=== PATIENT | female | born 1995 | race Caucasian/White ===

== ENCOUNTER → 2016-07-23 | Outpatient (CLI) | payer OTHER, MEDICAID ==
--- NOTE | 2016-07-24 08:19 | DX ---
Bilateral hips, 2 views each. HISTORY: Hip pain. History of remote fall. Clicking. FINDINGS: Normal mineralization and alignment. No evidence for acute fracture or dislocation. No sign ificant joint narrowing or periarticular erosion. Minimal degenerative change is seen at the symphysi s pubis. IMPRESSION: Unremarkable bilateral hips.
== END ==
LOC: FIMAGING 12:11
PROVIDERS: ATTEND Radiology Diagnostic Radiology
DX: M25.551 Pain in right hip (principal); M25.552 Pain in left hip

== ENCOUNTER 2018-01-05 20:15 | Inpatient (IN) | payer OTHER, MEDICAID ==
--- NOTE | 2018-01-05 20:23 | EDPHY ---
HPI/HX/ROS/PE/MDM Narrative: CHIEF COMPLAINT: M1, suicidal ideation HPI: The patient is a 22 y/o female with a history of depression arriving via [employer] on an M1 hold for suicidal ideation. PD contacted her as she was preparing to jump off a [place] on [facility]. Per officer, her friend was able to talk her down to keep her from jumping prior to their arrival. Throughout the officer's contact with her, she repeatedly stated that she regretted not jumping and planned to harm herself as soon as she had the opportunity. She affirms this plan to me. She has no other complaints. She denies any recent self -harm, ingestions, or intoxicant use. REVIEW OF SYSTEMS: Aside from elements discussed in the HPI, a comprehensive 10-point review of systems was reviewed and is negative. PMH: Depression SOCIAL HISTORY: Lives in [place]. Single. Student. PHYSICAL EXAM: General:Patient is alert, in no acute distress. ENT:Eyes are normal to inspection. ENT inspection normal. Neck: Normal inspection. Full range of motion. Respiratory:No respiratory distress. Breath sounds normal bilaterally. Cardiovascular: Regular rate and rhythm. Strong peripheral pulses. Normal cap refill. Abdomen:The abdomen is nontender to palpation. There are no peritoneal signs. Back: Normal to inspection. No tenderness to palpation. Skin: Normal color. No rash. Warm and dry. Extremities: Normal appearance. Full range of motion. Neuro: Oriented x3. Normal motor function. Normal sensory function. (Erik Argueta) ED Course: This is a 22 y/o female with a history of depression who presents on an M1 hold with plan to jump off a k[place] tonight to kill herself. No trauma noted. Normal exam. Plan for standard psychiatric clearance labs and then mental health evaluation. (Erik Argueta) 2323: Patient has been accepted by Dr. Arambula, 3N admission. EMTALA filled out. Appropriate transfer will be set up (Mac Mendosa) - Data Points Laboratory Results: Laboratory Results 01/05/18 20:20 01/05/18 20:20 01/05/18 01/05/18 01/05/18 21:35 20:20 20:20 WBC RBC Hgb Hct MCV MCH MCHC RDW Plt Count MPV Neut % (Auto) Lymph % (Auto) Marin % (Auto) Eos % (Auto) Baso % (Auto) Nucleat RBC Rel Count Absolute Neuts (auto) Absolute Lymphs (auto) Absolute Monos (auto) Absolute Eos (auto) Absolute Basos (auto) Absolute Nucleated RBC Immature Gran % Immature Gran # Sodium 140 mEq/L mEq/L (135-145) Potassium 3.6 mEq/L mEq/L (3.3-5.0) Chloride 110 mEq/L mEq/L (97-110) Carbon Dioxide 19 mEq/l L mEq/l (22-31) Anion Gap 11 mEq/L mEq/L (8-16) BUN 10 mg/dL mg/dL (7-23) Creatinine 0.8 mg/dL mg/dL (0.6-1.0) Estimated GFR > 60 Glucose 89 mg/dL mg/dL (70-100) Calcium 9.6 mg/dL mg/dL (8.5-10.4) Beta HCG, Qual NEGATIVE Urine Opiates Screen Cancelled Urine Barbiturates NEGATIVE (NEGATIVE) Ur Phencyclidine Scrn Cancelled Ur Amphetamine Screen NEGATIVE (NEGATIVE) Ur Amphetamines Screen Cancelled U Benzodiazepines Scrn NEGATIVE (NEGATIVE) Urine Cocaine Screen Cancelled U Marijuana (THC) Screen Cancelled Ethyl Alcohol < 10 mg/dL mg/dL (0-10) 01/05/18 20:20 WBC 13.45 10^3/uL H 10^3/uL (3.80-9.50) RBC 4.79 10^6/uL 10^6/uL (4.18-5.33) Hgb 14.4 g/dL g/dL (12.6-16.3) Hct 42.0 % % (38.0-47.0) MCV 87.7 fL fL (81.5-99.8) MCH 30.1 pg pg (27.9-34.1) MCHC 34.3 g/dL g/dL (32.4-36.7) RDW 13.7 % % (11.5-15.2) Plt Count 234 10^3/uL 10^3/uL (150-400) MPV 11.1 fL fL (8.7-11.7) Neut % (Auto) 73.9 % % (39.3-74.2) Lymph % (Auto) 18.7 % % (15.0-45.0) Marin % (Auto) 6.1 % % (4.5-13.0) Eos % (Auto) 0.7 % % (0.6-7.6) Baso % (Auto) 0.4 % % (0.3-1.7) Nucleat RBC Rel Count 0.0 % % (0.0-0.2) Absolute Neuts (auto) 9.93 10^3/uL H 10^3/uL (1.70-6.50) Absolute Lymphs (auto) 2.51 10^3/uL 10^3/uL (1.00-3.00) Absolute Monos (auto) 0.82 10^3/uL H 10^3/uL (0.30-0.80) Absolute Eos (auto) 0.10 10^3/uL 10^3/uL (0.03-0.40) Absolute Basos (auto) 0.06 10^3/uL 10^3/uL (0.02-0.10) Absolute Nucleated RBC 0.00 10^3/uL 10^3/uL (0-0.01) Immature Gran % 0.2 % % (0.0-1.1) Immature Gran # 0.03 10^3/uL 10^3/uL (0.00-0.10) Sodium Potassium Chloride Carbon Dioxide Anion Gap BUN Creatinine Estimated GFR Glucose Calcium Beta HCG, Qual Urine Opiates Screen Urine Barbiturates Ur Phencyclidine Scrn Ur Amphetamine Screen Ur Amphetamines Screen U Benzodiazepines Scrn Urine Cocaine Screen U Marijuana (THC) Screen Ethyl Alcohol Medications Given: Discontinued Medications Ondansetron HCl (Zofran Odt) 4 mg PO EDNOW ONE Stop: 01/05/18 20:25 Last Admin: 01/05/18 20:28 Dose: 4 mg General Time Seen by Provider: 01/05/18 20:18 Initial Vital Signs: Initial Vital Signs Temperature (C) 36.4 C 01/05/18 20:15 Heart Rate 74 01/05/18 20:15 Respiratory Rate 18 01/05/18 20:15 Blood Pressure 134/87 H 01/05/18 20:15 O2 Sat (%) 96 01/05/18 20:15 O2 Delivery Mode Room Air Allergies/Adverse Reactions: No Known Allergies Allergy (Verified 07/12/14 22:06) Home Medications: Medication Instructions Recorded ALPRAZolam [Xanax 0.5 MG (*)] 0.5 mg PO TID 01/05/18 Nuva Ring 01/05/18 Departure - Departure Clinical Impression: Suicidal ideation Condition: Fair Referrals: Patient,NotPresent [Unknown] - As per Instructions Report Scribed for: Erik Argueta Report Scribed by: Lilia Malone Date of Report: 01/05/18 Time of Report: 20:42 Physician Review and Approval Statement: Portions of this note were transcribed by an ED scribe. I personally performed the history, physical exam, and medical decision making; and confirm the accuracy of the information in the transcribed note.
[2018-01-05] MEDS ORDERED: ONDANSETRON DISINTEGRATING 4 MG TAB PO ONE (20:24)
[2018-01-05 20:39] LABS: PLATELET COUNT 234 10^3/uL (150-400)
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
--- NOTE | 2018-01-05 23:55 | ASMTTCLDSP ---
TLC Discharge Disposition Disposition: Answers: Admit Discharge Concerns/Recommendations: Notes: In consultation with [facility] ED physician, Mac Sanderson MD and on-call psychiatrist, Anurag Guzman MD, both concurred that pt appears to meet 27-65 criteria requiring psychiatric hospitalization as pt appears to be at risk of harm to self due to a mental illness condition. Pt was given the 3N prohibited belongings list while in the ED. Was patient given the Answers: Yes Inpatient Behavioral Health Prohibited Belongings List while in the ED? For inpatient Anurag Guzman MD admission, the following psychiatrist agreed to accept patient for admission to Behavioral Health ([facility]): Type of Hold: Answers: M1/72-hour Hold Hold initiated by: Answers: Police Date Signed: 01/05/2018 11:54 PM Electronically Signed By:Radha Morales
[2018-01-06] MEDS ORDERED: ACETAMINOPHEN 325 MG TAB PO PRN (02:01)
[2018-01-06] MEDS ORDERED: LORazepam 0.5 MG TAB PO PRN (02:01)
[2018-01-06] MEDS ORDERED: MAGNESIUM HYDROXIDE 30 ML UDCUP PO PRN (02:01)
[2018-01-06] MEDS ORDERED: MAG HYDROX/AL HYDROX/SIMETH 30 ML UDCUP PO PRN (02:01)
[2018-01-06] MEDS ORDERED: QUEtiapine FUMARATE 25 MG TAB PO PRN (02:03)
[2018-01-06] MEDS ORDERED: DULoxetine 20 MG CAP PO SCH (09:00)
--- NOTE | 2018-01-06 11:09 | ASMTBHMTP ---
Master Treatment Plan Master Treatment Plan Answers: Depressed Mood with for: Suicidal Ideation Date: 01/06/2018 Diagnosis on Admission: Major Depressive Disorder, Recurrent, Severe 296.33 (F33.2) Expected length of stay: 3-5 days Reason for admission: Notes: Pt is a 22 yoa female who was brought to [facility] ED on an M-1 hold by [facility] which noted, "Thomas wanted to jump off a [place] the [address] [place] Per police, "she was set on killing herself and regretted not jumping prior to be taken in to custody." Per Grandfather, client has been isolating more than normal and not interacting very much at all (recently). Client claims she already has an out-side provider (Jack Kim-Therapist) & PCP, etc. Client has had one hospitalization two years ago in [place], [place]. Patient's stated presenting problems: Notes: "I have depression...and I don't want to deal with it for the rest of my life." Patient's goals for treatment: Notes: "[To] make sure I'm on the right medications." Patient's strengths: Notes: none Identify supports outside of hospital: Notes: Family and Friends Discharge criteria: Notes: Suicidal Ideation and patient will have a plan to safely manage recurrent suicidal ideation. Initial disposition plan/considerations: Notes: "I would like to stay here in [place], [place] and live with my Grandparents." Master Treatment Plan Required Signatures Psychiatrist signature: Answers: NASRA Funez: RN on-shift signature: Answers: RN: Patient signature: Answers: Patient: Date Signed: 01/06/2018 11:08 AM Electronically Signed By:Cecil Casanova
--- NOTE | 2018-01-06 13:42 | BCON ---
[f rep st] BEHAVIORAL HEALTH CONSULTATION INTERNAL MEDICINE CONSULTATION DATE OF CONSULTATION: 01/06/2018 REFERRING PHYSICIAN: Anurag Guzman MD REASON FOR REFERRAL: Medical clearance for inpatient behavioral health stay. HISTORY OF PRESENT ILLNESS: This patient came to the emergency department on an M1 hold, brought by the by the [facility] Department for suicidal ideation. She was preparing to jump off a [place] on [facility]. A friend was able to talk her down, and then she was picked up [facility] and brought to the emergency department. She is currently without any acute complaints. PAST MEDICAL HISTORY: She reports history of cysts in her groin. She is not sure what kind of cyst and she has had 1 removed by her primary care provider. Depression. She, otherwise, denies any past medical or surgical history. MEDICATIONS: She was taking duloxetine 40 mg daily, and she has a NuvaRing intravaginal contraceptive device. FAMILY HISTORY: Noncontributory. REVIEW OF SYSTEMS: She is not in pain. She denies cough or dyspnea. She denies recent weight change. She denies nausea, vomiting, constipation, or diarrhea. Otherwise, a 10-point review of systems is negative. PHYSICAL EXAMINATION: VITAL SIGNS: Blood pressure is 110/59, heart rate is 83 , respiratory rate is 16, oxygen saturation is 98% on room air, temperature is 36.8 degrees centigrade. Weight is 63.5 kg for a body mass index of 24. GENERAL: This is a well-nourished, well-developed woman appears her chronologic age cooperative and in no acute distress: HEENT: Extraocular movements are intact. Pupils are equal, round, reactive to light. Mucous membranes are moist. Dentition is in good condition. She is uncrowded airway, Mallampati class 1. NECK: Supple. HEART: There is regular rate and rhythm with no murmurs, rubs, or gallops. LUNGS: Clear to auscultation bilaterally. ABDOMEN: Benign. EXTREMITIES: There is no cyanosis, clubbing, or edema. NEUROLOGIC: She is alert and oriented x3. Cranial nerves 2-12 are grossly intact. There is no focal weakness and sensation is intact to light touch. LABORATORY DATA: From the emergency department: CBC showed an elevated white blood cell count at 13.45. It was predominantly neutrophils and monocytes and there was no left shift. Serum chemistry showed a low carbon dioxide at 19 otherwise renal function electrolytes were normal. Beta hCG was negative for . Toxicology screen in the serum was negative for ethyl alcohol and in the urine was negative for substances of abuse with testing for barbiturates , amphetamines and benzodiazepines. ASSESSMENT/RECOMMENDATIONS: 1. Mental health issues pending further evaluation and management per Psychiatry and the mental health team. 2. Tobacco dependence syndrome. She reports that she is in the process of quitting and she was encouraged to continue the process. 3. Presence of NuvaRing intravaginal contraceptive device. This should be removed for a week after 3 weeks of use, and then replaced for the next cycle. Advise nursing to determine where she is in the NuvaRing cycle. I see no medical contraindications to this patient's continued stay on the inpatient behavioral health unit or to any psychiatric medications or procedures. Thank you very much for including me in the care of this patient and please do not hesitate to contact me or the hospitalist service should there be need for further medical evaluation. /[id number]/MODL MTDD
[2018-01-06] MEDS ORDERED: traZODone 50 MG TAB PO PRN (13:48)
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
[2018-01-06] MEDS: DULoxetine 20 MG CAP PO SCH (21:26)
--- NOTE | 2018-01-07 12:17 | SOAPPROG ---
SOAP Progress Note Assessment/Plan: Assessment: Major depressive disorder, severe, with anxious distress. PTSD per history. Mild anxiety (see subjective/objective note). Patient could benefit from continued hospitalization for observation for safety and medication evaluation. Plan: Review psychotropic medication treatment informed consent and recommendations. After reviewing options, risk and benefits, patient agrees to continue medications with the following changes. No medication changes at this time as more time is needed to determine ongoing tolerability and efficacy. Plan is to continue to observe patient for response and side effects from medications, and ongoing monitoring and evaluation. Next steps are for patient to meet with wound care nurse to plan a safe discharge plan and establish outpatient services for ongoing treatment. Consider discharge on if patient is in stable condition, safe, and has a safe discharge plan. PSYCHOTROPIC MEDICATION TREATMENT INFORMED CONSENT and RECOMMENDATIONS: Review nature of condition, diagnosis, and prognosis. Review nature and purpose of psychotropic medication treatment. Review type of psychotropic medications being ordered. Review risk and benefits of psychotropic medication treatment. Review probable length of time patient will need to take medications. Review risk and benefits of not undergoing psychotropic medication treatment. Review alternative treatments to psychotropic medications. Review psychotropic medications contraindications, drug-drug interactions, side effects, and importance of reporting any side effects to a psychiatric provider or nurse during inpatient hospitalization, and upon discharge to patients psychiatric outpatient provider, primary care provider, or other health child care assistant. Review importance of asking a nurse, psychiatric provider, or primary care provider any questions or problems concerning the psychotropic medications. Verify patient understands the information that has been provided, and understands, accepts, and agrees to psychotropic medications. Review patients safety plan and importance of patient to report to staff while hospitalized if patient is ever a danger to self/others, or unable to care for self, and upon discharge, the importance for patient to contact [facility] or [facility], or go to the nearest emergency room, if patient is ever a danger to self/others, or unable to care for self. Recommend that upon discharge patient establish medication management treatment with a psychiatric provider, establishes routine therapy appointments, and follow-up with primary care provider. Verify patient understands and agrees to these recommendations. 01/07/18 12:16 Subjective: Following up with patient for evaluation of depression, anxiety, and safety. Patient reports, "I am more mindful now and realize I have too much to live for. " Patient reports she wants to watch her sister grow-up and be a god-mother to her god-child, and have her own children someday. Patient expresses the following psychiatric symptoms: "a little anxious." Patient reports, "started new therapy (EMDR) with therapist, one session so far, and look forward to continuing it. Doing this for PTSD and depression." Objective: Vital Signs Temp Pulse Resp BP Pulse Ox 36.6 C 70 15 112/74 98 01/07/18 06:00 01/07/18 06:00 01/07/18 06:00 01/07/18 06:00 01/07/18 06:00 NURSING REPORT: Consulted with nursing for update on patients progress in treatment. Nurses report patient is engaged in treatment, is attending groups, slept 8 hours, expresses the following psychiatric symptoms: mild anxiety, exhibits the following psychiatric symptoms: anxious, is eating all meals, is taking medications as prescribed with no report of side effects, with no S/S side effects, and denies SI. RECREATIONAL DIRECTOR UPDATE: currently working on setting up outpatient services FAMILY MEETING: plan to meet with family today when they arrive during visiting hours UPDATE: Patient is currently improving, tolerating medications with no reports of side effects, and with good response for depression symptoms. Patient shows treatment response as of today. Patient continues to exhibit signs of anxiety. The patient presents casually dressed and with good hygiene, and looks stated age. Patient is sitting, posture is upright, and position is relaxed. Patient appears awake, alert, and responds appropriately and reasonably during interview. Patient is engaged, relates well to interviewer, and emotional facial expression is appropriate to situation and changes appropriately with topic. Patient is cooperative, makes comfortable eye contact, and movements are voluntary, deliberate, coordinated, and smooth and even with no inappropriate movements. Patient makes laryngeal sounds effortlessly and shares conversation appropriately; pace of conversation is appropriate, and stream of talking is fluent; articulation is clear and understandable; word choice is effortless and appropriate for education level; completes sentences, occasionally pausing to think; rate and volume are appropriate for interview and setting. Patient reports mood as anxious. Patients affect is stable with full variable range, congruent with mood, and appropriate to speech and circumstances. Patient has linear and logical thinking, with no loose associations, tangential thought, thought blocking, concrete thinking, or any other signs of formal thought disorder. Patient denies suicidal and homicidal ideation, and denies hallucinations and delusions. Patient appears to be a reliable historian with sound judgement and good insight into current condition. Patient has no apparent dysfunction in recent or remote memory noted , and no evidence of gross cognitive dysfunction noted at any point during the interview. Patient reports taking medications as prescribed. Patient does not report undesirable side effects from the medications. Patient slept 8 hours. Patient reports appetite as good, and reports eating all meals. - Time Spent With Patient Time Spent With Patient: 30 minutes, met with patient individually. - Pending Discharge Pending Discharge Within 24 Hours: Yes Pending Discharge Within 48 Hours: No Pending Discharge Date: 01/08/18 Pending Discharge Time: 11:00 ICD10 Worksheet Patient Problems: Problems Problem Status Onset Cannabis use disorder, moderate, in controlled environment Acute Major depressive disorder, recurrent episode, severe with anxious distress Acute Suicidal ideation Acute
--- NOTE | 2018-01-07 12:33 | ASMTBHDC ---
Notes Note: Notes: CC spoke briefly to client during check-in. Client appears neat, clean, affect is appropriate to situation while displaying a pleasant demeanor. Client was able to sign SHAISTA for out-side providers. CC tried to contact all providers but due to the holiday was not able to reach anyone. CC will try again in the AM as client is expected to discharge sometime tomorrow. Follow up with: [facility] [address], [address] Next Appt: NICOLE Patricio MD [address] [place] [id number] Next Appt: NICOLE Date Signed: 01/07/2018 12:32 PM Electronically Signed By:Cecil Casanova
[2018-01-07] MEDS: DULoxetine 20 MG CAP PO SCH (20:49)
[2018-01-08 06:21] VITALS: BP 90/55
--- NOTE | 2018-01-08 09:57 | BDS ---
[f rep st] BEHAVIORAL HEALTH DISCHARGE SUMMARY REASON FOR ADMISSION: Pertinent data from ED note dated 01/05/2018. The patient has history of depression. Arriving via [employer] on an M1 hold for suicidal ideation. PD contacted her as she was preparing to jump off a kyleigh at [facility] per officer. Her friend was able to talk her down from jumping prior to her arrival. The patient was admitted involuntarily on an M1 hold due to being a danger to herself. The patient was admitted for safety, crisis stabilization, and medication evaluation. ADMISSION DIAGNOSES: 1. Suicidal ideation. 2. Major depressive disorder, recurrent episode, severe with anxious distress. 3. Cannabis use disorder, moderate, in controlled environment. 4. Posttraumatic stress disorder. ADMISSION PHYSICAL EXAMINATION: The patient was seen by Dr. Goldsmith on 2017, for an internal medicine consultation. Reason for referral was medical clearance for inpatient Behavioral Health stay. Per Dr. Goldsmith, he saw no medical contraindications to the patient's continued stay on the inpatient behavioral health unit or to any psychiatric medications or procedures. For further details, please refer to Dr. Goldsmith's note dated 01/06/2018. ADMISSION LABORATORY: Labs from the emergency department, CBC showed an elevated white blood cell count at 13.45; it was predominantly neutrophils and monocytes. There was no left shift. Serum chemistry showed a low carbon dioxide at 19. Otherwise, renal function and electrolytes were normal. Beta HCG was negative for . Toxicology screen in the serum was negative for ethyl alcohol and then the urine was negative for substances of abuse. HOSPITAL COURSE: The most prominent symptoms and behaviors while the patient was here were symptoms of depression including flat affect and patient reporting feeling sad. Depression symptoms were targeted during hospitalization. Treatment modalities utilized were milieu and group therapy. The patient, upon admission, was on Cymbalta 40 mg p.o. at bedtime. The patient agreed to increase this medication and Cymbalta 60 mg p.o. at bedtime was started to target depression symptoms and was tolerated with no report of side effects and with good response. The patient reported difficulty falling asleep and sleep issues in general due to depression. The patient agreed to trazodone 50 mg p.o. at bedtime p.r.n. Medication was started to target insomnia symptoms related to depression and was tolerated with no report of side effects and with good response. The patient has improved considerably with no signs of psychiatric symptoms or no psychiatric symptoms expressed at discharge. The patient reports she has improved since admission, states to be in stable condition, feels safe at discharge, and contracts for safety. Patient 's response to treatment was good. There were no adverse or unexpected results of treatment. The patient was safe throughout her stay, active in treatment, engaged in groups, and was appropriate with staff and other patients. The treatment team consensus is that the patient is stable condition and is safe to discharge today. CONDITION ON DISCHARGE: Patient is in stable condition and is no longer a danger to self or others, and is not gravely disabled due to mental illness. Patient is no longer in need of inpatient level of care, and can be safely and effectively treated within the community. The patients level of risk at time of discharge is low based on the risk assessment below following this discharge summary. MSE: The patient is casually dressed and with good hygiene, and looks stated age. Patient is sitting, posture is upright, and position is relaxed. Patient appears awake, alert, and responds appropriately and reasonably during interview. Patient is engaged, relates well to interviewer, and emotional facial expression is appropriate to situation and changes appropriately with topic. Patient is cooperative, makes comfortable eye contact, and movements are voluntary, deliberate, coordinated, and smooth and even with no inappropriate movements. Patient makes laryngeal sounds effortlessly and shares conversation appropriately; pace of conversation is appropriate, and stream of talking is fluent; articulation is clear and understandable; word choice is effortless and appropriate for education level; completes sentences, occasionally pausing to think; rate and volume are appropriate for interview and setting. Patient reports mood as euthymic. Patients affect is stable with full variable range, congruent with mood, and appropriate to speech and circumstances. Patient has linear and logical thinking, with no loose associations, tangential thought, thought blocking, concrete thinking, or any other signs of formal thought disorder. Patient denies suicidal and homicidal ideation, and denies hallucinations and delusions. Patient appears to be a reliable historian with sound judgement and good insight into current condition. Patient has no apparent dysfunction in recent or remote memory noted , and no evidence of gross cognitive dysfunction noted at any point during the interview. DISCHARGE DIAGNOSES: 1. Major depressive disorder, recurrent episode, severe with anxious distress. 2. Cannabis use disorder, moderate. 3. Posttraumatic stress disorder. DISCHARGE MEDICATIONS: Cymbalta 60 mg p.o. at bedtime. The patient was provided a 30-day prescription at time of discharge. trazodone 50 mg p.o. at bedtime p.r.n. The patient was provided a 30 day prescription at time of discharge. Prescriptions were reviewed with the patient prior to discharge for accuracy. DISPOSITION: The patient left hospital independently and voluntarily with her grandmother and plans to attend her therapy appointment today at 11:30 a.m. FOLLOWUP: residency coordinator reports the appropriate outpatient follow-up services have been established and outpatient appointments have been scheduled. The patient received written instructions with times and dates of outpatient follow-up appointments. The following follow-up recommendations were provided to the patient at discharge: Continue psychotropic medications as prescribed and attend appointments as scheduled. Report any side effects to a psychiatric outpatient provider, a primary care provider, or other health customer care professional. Address any questions or problems concerning the psychotropic medications with a psychiatric outpatient provider, a primary care provider, or other health customer care professional. Contact [facility] or [facility], or go to the nearest emergency room, if you are ever a danger to yourself/others, or unable to care for yourself. As soon as possible, establish a routine medication management treatment with a psychiatric provider, establish routine therapy appointments, and follow-up with a primary care provider. LEGAL COURSE: The patient was admitted on M1 for involuntary psychiatric hospitalization. The patient discharged today voluntarily and independently with her. ATTITUDE AT TIME OF DISCHARGE: The patient's attitude was positive at time of discharge and the patient reports looking forward to discharging today. The patient reports she feels safe to discharge, is no longer a danger to herself or others, is in stable condition, and contracts for safety. The patient states she will continue medications as prescribed and establish medication management treatment with her outpatient provider after discharge. The patient reports she understands the information that has been provided to her and she understands, accepts, and agrees to psychotropic medications. The patient reports internal protective factors as the coping skills she has learned while hospitalized here and she plans to continue to practice these coping skills after discharge. The patient reports external protective factors as her younger sister, her godchild, grandparents, and wanting children of her own someday. Patient describes looking forward to being able to spend time with her younger sister and going to her therapy appointment at 11:30 a.m. today after discharge. 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 The patient reports she has completed her safety plan and has reviewed her safety plan with her nurse. This TRANSCRIPTION met with the patient's grandparents yesterday, during visiting hours and with the patient present, and reviewed the patient's safety plan with them and the patient, and also discussed ongoing treatment and discharge plans. The patient reports her family and friends look forward to her discharging today. The patient reports her mother visited her last night during visiting hours and they put a puzzle together during that time. The patient reports that she has not done something like this with her mother for a long time and she looks forward to continuing to have a good relationship with her mother after discharge. The patient's grandparents report the patient has a safe discharge plan, is safe to discharge, and agrees with patient discharging today. The patient will return and stay with grandparents for the majority of the summer and then patient will return to college in [place], [place]. LABORATORY AND STUDIES: No pending labs and studies at time of discharge. ADVANCE DIRECTIVES: No advance directives on file and patient were full code during hospitalization. The following psychotropic medication treatment informed consent and recommendations were provided to the patient at time of discharge. Patient reports she understands, accepts, and agrees to the information that has been provided. PSYCHOTROPIC MEDICATION TREATMENT INFORMED CONSENT and RECOMMENDATIONS: Review nature of condition, diagnosis, and prognosis. Review nature and purpose of psychotropic medication treatment. Review type of psychotropic medications being prescribed. Review risk and benefits of psychotropic medication treatment. Review probable length of time will need to take medications. Review risk and benefits of not undergoing psychotropic medication treatment. Review alternative treatments to psychotropic medications. Review psychotropic medications contraindications, side effects, and importance of reporting any side effects to a psychiatric provider, primary care provider, or other health customer care professional. Review importance of her asking a psychiatric provider or primary care provider any questions or problems concerning the psychotropic medications. Review importance of reporting to a psychiatric provider, primary care provider, or other health customer care professional if she plans to or becomes . Review safety plan and the importance to contact [facility] or [facility] , or go to the nearest emergency room, if ever a danger to yourself/others, or unable to care for yourself. Recommend upon discharge to establish routine medication management treatment with a psychiatric provider, establish routine therapy appointments, and follow-up with a primary care provider. Verify patient understands, accepts, and agrees to the information that has been provided. SUICIDE ASSESSMENT FIVE-STEP EVALUATION AND TRIAGE (1) RISK FACTORS: (a) Suicidal behavior: reports history of suicidal ideation, but has reached out to friends for coping skills, and has no history of suicide attempt (b) Current/past psychiatric disorders: Major Depressive Disorder, PTSD, Cannabis Use Disorder (c) [place] symptoms: mild anxiety (d) Family history: none (e) Precipitants/Stressors/Interpersonal: none (f) Change in treatment: discharge from psychiatric hospital (g) Access to firearms: none (2) PROTECTIVE FACTORS: (a) Internal: coping skills (b) External: family and friends (3) SUICIDAL INQUIRY: (a) Ideation: none (b) Plan: none (c) Behaviors: none (d) Intent: none (4) RISK LEVEL: Low: modifiable risk factors, strong protective factors; no SI or self-injurious ideation. Intervention: treatment plan to reduce symptoms: medications and therapy, provided emergency/crisis numbers, follow-up plan. /[id number]/MODL MTDD
== END 2018-01-08 10:18 | disposition home or self-care (01) | DRG 885 ==
LOC: BBEH 01-06 01:43
PROVIDERS: ADMIT Psychiatry & Neurology Psychiatry; ATTEND Psychiatry & Neurology Psychiatry
DX: F33.3 Major depressive disorder, recurrent, severe with psychotic symptoms (principal); F12.90 Cannabis use, unspecified, uncomplicated; F43.10 Post-traumatic stress disorder, unspecified; F17.200 Nicotine dependence, unspecified, uncomplicated
CPT/HCPCS: 80305; G0480

== ENCOUNTER 2018-09-28 18:23 | Emergency (ER) | payer OTHER, MEDICAID ==
[2018-09-28] MEDS ORDERED: NS 1,000 ML IV ONE (18:40)
--- NOTE | 2018-09-28 18:48 | EDPHY ---
H & P Stated Complaint: + preg test has nuva ring l sided pelvic pain lmp 09/02 Source: Patient Exam Limitations: No limitations - Personal History LMP (Females 10-55): Current Tetanus Diphtheria and Acellular Pertussis (TDAP): Yes - Medical/Surgical History Hx Asthma: Yes Hx Chronic Respiratory Disease: No Hx Diabetes: No Hx Cardiac Disease: No Hx Renal Disease: No Hx Cirrhosis: No Hx Alcoholism: No Hx HIV/AIDS: No Hx Splenectomy or Spleen Trauma: No Other PMH: depression - Social History Smoking Status: Former smoker Time Seen by Provider: 09/28/18 18:42 HPI/ROS: HPI: This is a 22-year-old female who presents with Chief Complaint: Left lower quadrant pain Location: Left lower quadrant Quality: Pain Duration: Since yesterday afternoon Signs and Symptoms: no fever, + nausea, no vomiting, no hematemesis, no blood in stool, no abdominal bloating, no diarrhea, no back pain, no urinary symptoms , no vaginal bleeding/discharge, no indigestion, no chest pain, no shortness of breath Timing: Acute, worsening Severity: Moderate Context: Patient is a had a NuvaRing inserted on August 12. Last menstrual period was 09/02/2018. Yesterday afternoon developed left lower quadrant pain that worsened with laughing, bending, coughing. She felt a bulging sensation in the left lower quadrant. The pain is continued to worsen and is now moderate, constant in nature. She took a test today and it was positive. She was sent from urgent care to the emergency room to evaluate for ectopic . Denies any urinary symptoms. Denies vaginal discharge, vaginal bleeding. Modifying Factors: None Comment: ROS: A comprehensive 10 system review of systems is otherwise negative aside from elements mentioned in the history of present illness. MEDICAL/SURGICAL/SOCIAL HISTORY: Medical history: Depression. Surgical history: Denies Social history: Former smoker. Family history noncontributory. CONSTITUTIONAL: Well-developed, well-nourished, nontoxic-appearing young adult white female, awake and alert, no obvious distress HEENT: Atraumatic and normocephalic, PERRL, EOMI. Nares patent; no rhinorrhea; no nasal mucosal edema. Tympanic membranes clear. Oropharynx clear, no exudate and moist pink mucosa. Airway patent. No lymphadenopathy. No meningismus. Cardiovascular: Normal S1/S2, regular rate, regular rhythm, without murmur rub or gallop. PULMONARY/CHEST: Symmetrical and nontender. Clear to auscultation bilaterally. Good air movement. No accessory muscle usage. ABDOMEN: Soft, nondistended, moderate left lower quadrant tenderness, no rebound, + guarding, no peritoneal signs, no masses or organomegaly. No CVAT. EXTREMITIES: 2/2 pulses, strength 5/5, no deformities, no clubbing, no cyanosis or edema. NEUROLOGICAL: no focal neuro deficits. GCS 15. SKIN: Warm and dry, no erythema. no rash. Good capillary refill. (Mercy Mcginnis) Constitutional: Initial Vital Signs Temperature (C) 36.7 C 09/28/18 18:28 Heart Rate 74 09/28/18 18:28 Respiratory Rate 18 09/28/18 18:28 Blood Pressure 115/79 09/28/18 18:28 O2 Sat (%) 99 09/28/18 18:28 O2 Delivery Mode Room Air Allergies/Adverse Reactions: latex Allergy (Verified 09/28/18 18:28) Home Medications: Medication Instructions Recorded Nuva Ring 1 eileen [id number] 01/05/18 DULoxetine [Cymbalta 60 MG (*)] 60 mg PO HS #30 cap 01/08/18 traZODone [traZODONE 50MG (*)] 50 mg PO HS PRN 30 Days #30 tab 01/08/18 Medical Decision Making - Diagnostics Imaging Results: Imaging Impressions Pelvic/Renal Ultrasound 09/28/18 18:40 Impression: 1. Negative pelvic ultrasound. 2. There is a positive test with no intrauterine gestation identified , presumably due to the early age based on a low beta hCG. Continued follow-up is recommended. An ectopic gestation is not excluded. Results called and discussed with Mercy WHITE on 09/28/2018 at 19:50. ED Course/Re-evaluation: Vital signs reviewed and stable upon arrival. IV access, laboratory studies, urinalysis, pelvic ultrasound ordered 1923: Urinalysis shows 1+ blood, 2+ LE, 5-10 WBCs; no malinda signs of infection Labs reviewed. WBC 11 K. No signs of anemia/platelet dysfunction/TAMIKO/elevated LFTs/electrolyte imbalance/pancreatitis. 1929: Positive serum HCG 1937: Pelvic ultrasound is essentially unremarkable and no signs of ovarian torsion, no ectopic . 1943: Serum HCG 398.03 Blood type is O-positive 1948: Called by radiologist, Dr. Daniel Solorzano, who advised pelvic ultrasound shows no signs of ectopic , ovarian torsion, ovarian cyst, free fluid. No intrauterine gestation identified. ED decision to consult OBGYN. Spoke with Dr. Falcon. Remove NuvaRing. Repeat Quaint 48 hours at 4 pm. Call to make an appt for . Ectopic precautions. Patient personally removed the NuvaRing while in the emergency room. This patient was seen under the supervision of my secondary supervising physician. I evaluated care for this patient with attending. (Mercy Mcginnis) I did not see this patient while she was in the emergency department. However her care was discussed with the PA while the patient was in the department. I agree with treatment plan and management (Randolph Fernandez) Differential Diagnosis: Abdominal pain in a female including but not limited to ovarian cyst, pelvic inflammatory disease, ovarian torsion, urinary tract infection, and appendicitis. (Mercy Mcginnis) - Data Points Laboratory Results: Laboratory Results 09/28/18 18:56 09/28/18 18:56 09/28/18 09/28/18 09/28/18 19:05 18:56 18:56 WBC RBC Hgb Hct MCV MCH MCHC RDW Plt Count MPV Neut % (Auto) Lymph % (Auto) [place] % (Auto) Eos % (Auto) Baso % (Auto) Nucleat RBC Rel Count Absolute Neuts (auto) Absolute Lymphs (auto) Absolute Monos (auto) Absolute Eos (auto) Absolute Basos (auto) Absolute Nucleated RBC Immature Gran % Immature Gran # Sodium Potassium Chloride Carbon Dioxide Anion Gap BUN Creatinine Estimated GFR Glucose Calcium Total Bilirubin Conjugated Bilirubin Unconjugated Bilirubin AST ALT Alkaline Phosphatase Total Protein Albumin Lipase Beta HCG, Qual POSITIVE Beta HCG, Quant Urine Color YELLOW Urine Appearance CLEAR Urine pH 5.0 (5.0-7.5) Ur Specific [place] 1.021 (1.002-1.030) Urine Protein NEGATIVE (NEGATIVE) Urine Ketones NEGATIVE (NEGATIVE) Urine Blood 1+ H (NEGATIVE) Urine Nitrate NEGATIVE (NEGATIVE) Urine Bilirubin NEGATIVE (NEGATIVE) Urine Urobilinogen NEGATIVE EU EU (0.2-1.0) Ur Leukocyte Esterase 2+ H (NEGATIVE) Urine RBC 1-3 /hpf /hpf (0-3) Urine WBC 5-10 /hpf H /hpf (0-3) Ur Epithelial Cells TRACE /lpf /lpf (NONE-1+) Urine Mucus 1+ /lpf /lpf (NONE-1+) Urine Glucose NEGATIVE (NEGATIVE) Patient ABO/Rh O POSITIVE 09/28/18 09/28/18 18:56 18:56 WBC 10.67 10^3/uL H 10^3/uL (3.80-9.50) RBC 4.51 10^6/uL 10^6/uL (4.18-5.33) Hgb 13.3 g/dL g/dL (12.6-16.3) Hct 39.7 % % (38.0-47.0) MCV 88.0 fL fL (81.5-99.8) MCH 29.5 pg pg (27.9-34.1) MCHC 33.5 g/dL g/dL (32.4-36.7) RDW 13.5 % % (11.5-15.2) Plt Count 293 10^3/uL 10^3/uL (150-400) MPV 10.1 fL fL (8.7-11.7) Neut % (Auto) 52.1 % % (39.3-74.2) Lymph % (Auto) 37.2 % % (15.0-45.0) [place] % (Auto) 6.2 % % (4.5-13.0) Eos % (Auto) 3.8 % % (0.6-7.6) Baso % (Auto) 0.5 % % (0.3-1.7) Nucleat RBC Rel Count 0.0 % % (0.0-0.2) Absolute Neuts (auto) 5.56 10^3/uL 10^3/uL (1.70-6.50) Absolute Lymphs (auto) 3.97 10^3/uL H 10^3/uL (1.00-3.00) Absolute Monos (auto) 0.66 10^3/uL 10^3/uL (0.30-0.80) Absolute Eos (auto) 0.41 10^3/uL H 10^3/uL (0.03-0.40) Absolute Basos (auto) 0.05 10^3/uL 10^3/uL (0.02-0.10) Absolute Nucleated RBC 0.00 10^3/uL 10^3/uL (0-0.01) Immature Gran % 0.2 % % (0.0-1.1) Immature Gran # 0.02 10^3/uL 10^3/uL (0.00-0.10) Sodium 134 mEq/L L mEq/L (135-145) Potassium 3.6 mEq/L mEq/L (3.5-5.2) Chloride 106 mEq/L mEq/L (97-110) Carbon Dioxide 19 mEq/l L mEq/l (22-31) Anion Gap 9 mEq/L mEq/L (6-14) BUN 14 mg/dL mg/dL (7-23) Creatinine 0.8 mg/dL mg/dL (0.6-1.0) Estimated GFR > 60 Glucose 75 mg/dL mg/dL (70-100) Calcium 9.0 mg/dL mg/dL (8.5-10.4) Total Bilirubin 0.4 mg/dL mg/dL (0.1-1.4) Conjugated Bilirubin 0.3 mg/dL mg/dL (0.0-0.5) Unconjugated Bilirubin 0.1 mg/dL mg/dL (0.0-1.1) AST 16 IU/L IU/L (14-46) ALT 17 IU/L IU/L (9-52) Alkaline Phosphatase 69 IU/L IU/L (38-126) Total Protein 7.5 g/dL g/dL (6.3-8.2) Albumin 4.2 g/dL g/dL (3.5-5.0) Lipase 54 IU/L IU/L (23-300) Beta HCG, Qual Beta HCG, Quant 398.03 mIU/mL H mIU/mL (0.00-4.83) Urine Color Urine Appearance Urine pH Ur Specific [place] Urine Protein Urine Ketones Urine Blood Urine Nitrate Urine Bilirubin Urine Urobilinogen Ur Leukocyte Esterase Urine RBC Urine WBC Ur Epithelial Cells Urine Mucus Urine Glucose Patient ABO/Rh Medications Given: Discontinued Medications Sodium Chloride (Ns) 1,000 mls @ 0 mls/hr IV EDNOW ONE; Wide Open PRN Reason: Protocol Stop: 03/25/19 18:41 Last Admin: 09/28/18 19:03 Dose: 1,000 mls Departure - Departure Disposition: Home, Routine, Self-Care Clinical Impression: Encounter for surveillance of nuvaring Qualifiers: Weeks of gestation: less than 8 weeks Qualified Code(s): Z3A.01 - Less than 8 weeks gestation of Ectopic without intrauterine Qualifiers: Location of ectopic : unspecified location Qualified Code(s): O00.90 - Unspecified ectopic without intrauterine Condition: Good Instructions: Ectopic (DC), Pelvic Rest (ED) Additional Instructions: Please call the OBGYN office tomorrow to get an appointment time for . You will need a Repeat serum HCG Quaint in 48 hours at 4 pm. Observe pelvic precautions and ectopic precautions. Follow-Up: Please follow-up as noted above. Follow-up sooner if your condition worsens or if you develop any new problems. Call as soon as possible for an appointment. Be clear when you call for an appointment that this is an Emergency Department follow-up. Contact the Emergency Department if you have trouble arranging follow-up care. Our referrals are not based on your insurance network. When time allows, contact your insurance carrier to verify the referral physician is in your plan. If not, get a referral for an in-senior cisco network engineer. Referrals: Nany Patricio MD [Primary Care Provider] - As per Instructions Fadumo Falcon DO [Doctor of Osteopathy] - As per Instructions
[2018-09-28 19:14] LABS: PLATELET COUNT 293 10^3/uL (150-400)
[2018-09-28 20:14] VITALS: BP 122/78
== END 2018-09-28 20:18 | disposition home or self-care (01) ==
DX: O00.90 Unspecified ectopic pregnancy without intrauterine pregnancy (principal); E86.9 Volume depletion, unspecified; Z3A.01 Less than 8 weeks gestation of pregnancy

== ENCOUNTER → 2018-10-08 | Outpatient (CLI) | payer OTHER, MEDICAID | LOC: FIMAGING 16:46 | PROVIDERS: ATTEND Obstetrics & Gynecology | DX: Z32.01 Encounter for pregnancy test, result positive (principal); R10.9 Unspecified abdominal pain; Z3A.01 Less than 8 weeks gestation of pregnancy ==